=== PATIENT | female | born 2000 | race Caucasian/White ===

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

== ENCOUNTER 2022-09-28 18:46 | Emergency (ER) | payer MEDICAID, SELFPAY ==
[2022-09-28 18:50] VITALS: BP 135/69; PULSE 118; RESP 18; TEMP 36.8; O2SAT 97; BMI 37.7
[2022-09-28 19:20] LABS: Basophils # 0.3 K/mm3 (0-0.2); Basophils % 2.4 % (0.1-2.0); Eosinophils # 0.3 K/mm3 (0.0-0.4); Eosinophils % 2.6 % (0.1-12.0); Hematocrit 49.5 % (37.0-47.0); Hemoglobin 16.2 g/dL (12.2-16.2); Lymphocytes # 1.5 K/mm3 (0.7-4.5); Lymphocytes % 12.7 % (10-50); Mean Corpuscular HGB Conc 32.7 g/dL (31.8-35.4); Mean Corpuscular Hemoglobin 28.7 pg (27.0-31.2); Mean Corpuscular Volume 87.8 fl (81-99); Mean Platelet Volume 8.5 fl (7.4-10.4); Monocytes # 0.8 K/mm3 (0.1-1.0); Monocytes % 6.8 % (1.7-9.3); Neutrophils # 8.8 K/mm3 (1.8-7.8); Neutrophils % 75.6 % (37.0-80.0); Platelet Count 399 K/mm3 (142-424); Red Blood Count 5.64 M/mm3 (4.20-5.40); Red Cell Distribution Width 13.1 % (11.5-17.5); White Blood Count 11.7 K/mm3 (4.5-13.0)
[2022-09-28 19:27] LABS: Chloride 104 mmol/L (98-107); Potassium 3.8 mmoL/L (3.5-5.1); Sodium 139 mmol/L (136-145)
[2022-09-28 19:29] LABS: Blood Urea Nitrogen 8 mg/dl (7-17); Creatinine Clearance Estimated 156 mL/min (50-200); Estimated Glomerular Filt Rate 92 ml/min (>60); GFR (African American) 112 ML/MIN (>60); Lactic Acid 1.6 mmol/L (0.7-2.1)
[2022-09-28 19:30] LABS: Alanine Aminotransferase 62 U/L (12-78); Albumin Level 4.1 g/dl (3.5-5.0); Albumin/Globulin Ratio 1.5 (1.1-1.8); Alkaline Phosphatase 122 U/L (38-126); Anion Gap 13.8 mEq/L (5-15); Aspartate Amino Transferase 37 U/L (14-36); Calcium 8.9 mg/dl (8.4-10.2); Carbon Dioxide 25 mmol/L (22.0-30.0); Globulin 2.8 g/dL (1.3-3.2); Glucose 135 mg/dl (74-100); Total Protein,Serum 6.9 g/dl (6.3-8.2)
[2022-09-28 19:33] LABS: Bilirubin,Total 0.1 mg/dl (0.2-1.3)
--- NOTE | 2022-09-28 19:38 | HMH.EDGENADL ---
Discharge Plan Disposition Patient Disposition: Home, Self-Care Chief Complaint: Abdominal Pain Prescriptions Prescriptions: No Action cefdinir 300 MG capsule 300 mg PO BID Qty: 14 0RF Referrals Follow up/Referrals: Vazquez Cullen [Primary Care Provider] - See instructions Clinical Impressions Clinical Impression: Abdominal pain Instructions Patient Instructions: DI for Acute Abdominal Pain Discharge ED Provider: Dany Guzman General Adult HPI General Chief complaint: Abdominal Pain Stated complaint: n/v Time Seen by Provider: 09/28/22 19:00 Mode of Arrival: EMS Source of Information: Patient Limitations: No Limitations Description of Symptoms (Recalled from ER Triage Doc. by RN): PT BROUGHT IN VIA EMS FOR ABDOMINAL PAIN X 2 DAYS. STATES IT COULD BE MY PANCREATITIS History of Present Illness HPI narrative: This is a 21-year-old female with history of obesity numerous episodes of pancreatitis presenting with nausea and vomiting as well as abdominal pain x3 days. Patient states that 3 days ago she began vomiting while she was sitting in her room. No inciting incident. She has not been vomiting in the absence of oral intake, but every time she attempts taking oral intake she vomits multiple times. Nonbloody, nonbilious. She has also had associated diarrhea that is chronic, but mildly worsened. Diarrhea is also nonbloody. She is complaining of epigastric pain that is moderate in intensity, radiates through to her back and is worse when she is retching. Denies fevers, chills, chest pain, shortness of breath, cough, sick contacts, or any other concerning symptoms. Related Data Previous Rx's Medication Instructions Recorded cefdinir 300 mg capsule 300 mg PO BID #14 caps 09/23/19 Allergies Allergy/AdvReac Type Severity Reaction Status Date / Time No Known Allergies Allergy Verified 09/28/22 19:32 [facility] Disclaimer: The information contained in this section may have been updated after the patient was seen, as this information can be updated by other users. Surgical History (Updated 09/28/22 @ 19:07 by Caitlyn Belcher RN) Hx of cholecystectomy Social History (Updated 09/28/22 @ 19:07 by Caitlyn Belcher RN) Smoking Status: Never smoker alcohol intake: never current occupational status: student Travel in the last 8 weeks: None housing: house ROS Obtained: Yes All systems reviewed & no additional complaints except as documented Physical Exam General General appearance: alert and in no apparent distress Head Head exam: atraumatic, normocephalic and normal inspection Eye Eye exam: Present normal appearance, PERRL and EOMI ENT ENT exam: Present normal exam, normal oropharynx, mucous membranes moist, TM's normal bilaterally and normal external ear exam Neck Neck exam: Present normal inspection, full ROM and trachea midline; Absent meningismus or lymphadenopathy Chest Chest inspection: Present normal inspection and symmetric chest wall rise; Absent tenderness Respiratory Respiratory exam: Present normal lung sounds bilaterally; Absent respiratory distress Cardiovascular Cardiovascular exam: Present regular rate and normal rhythm; Absent JVD Abdominal Exam Abdominal exam: Present soft, tenderness and normal bowel sounds; Absent distention, guarding, rebound, rigidity, hypoactive bowel sounds, Sky's sign or Rovsing's sign Abdominal tenderness: Present epigastrium Extremities Exam Extremities exam: Present normal inspection, full ROM and normal capillary refill; Absent calf tenderness Back Exam Back exam: Present normal inspection; Absent tenderness Neurological Exam Neurological exam: Present alert and oriented X3 Psychiatric Psychiatric exam: Present normal affect and normal mood Skin Skin exam: Present warm, dry, intact and normal color Lymphatic Lymphatic Findings: no adenopathy Medical Decision Making Medical Records Medical records reviewed: Yes I reviewed the
[2022-09-28 19:44] LABS: Lipase 55 U/L (23-300); Triglycerides 131 mg/dl (30-150)
--- NOTE | 2022-09-28 19:53 | CT_ITS ---
PROCEDURE INFORMATION: Exam: CT Abdomen And Pelvis With Contrast Exam date and time: 09/28/2022 8:51 PM Age: 21 years old Clinical indication: Abdominal pain; Generalized; Additional info: History of pancreatitis, epigastric pain TECHNIQUE: Imaging protocol: Computed tomography of the abdomen and pelvis with contrast. Radiation optimization: All CT scans at this facility use at least one of these dose optimization techniques: automated exposure control; mA and/or kV adjustment per patient size (includes targeted exams where dose is matched to clinical indication); or iterative reconstruction. Contrast material: ISOVUE; Contrast volume: 75 ml; Contrast route: IV; COMPARISON: CT ABDOMEN PELVIS W CON 03/14/2021 8:28 PM FINDINGS: Liver: Normal. No mass. Gallbladder and bile ducts: Status post cholecystectomy. Pancreas: Normal enhancement. No ductal dilation. Spleen: No splenomegaly. Adrenal glands: No mass. Kidneys and ureters: No hydronephrosis. Stomach and bowel: No obstruction. No mucosal thickening. Appendix: No evidence of appendicitis. Intraperitoneal space: No significant fluid collection. No free air. Vasculature: No abdominal aortic aneurysm. Lymph nodes: Scattered borderline mesenteric lymph nodes measuring up to 9 mm. Urinary bladder: No acute abnormality. Reproductive: No acute abnormality. Bones/joints: No acute fracture. Soft tissues: No soft tissue swelling. IMPRESSION: Scattered borderline mesenteric lymph nodes which are nonspecific but potentially reactive. Close clinical follow-up is recommended to ensure resolution.
[2022-09-28 20:02] LABS: HCG,Quantitative < 2 mIU/ml (0-5.42)
[2022-09-28 20:11] LABS: Microscopic, Urine URINE MICROSCOPIC (MICROSCOPIC)
[2022-09-28 20:20] LABS: Appearance,Urine CLEAR (Clear); Blood, Urine TRACE-L (Negative); Color,Urine YELLOW (Yellow); Glucose,Urine (UA) Negative (Negative); Ketones,Urine TRACE (Negative); Leukocyte Esterase,Urine Negative (Negative); Nitrate,Urine Negative (Negative); PH,Urine 5.5 (5.0-8.5); Protein,Urine TRACE (Negative); Specific Gravity, Urine 1.025 (1.005-1.030)
[2022-09-28 20:26] LABS: Urine Pregnancy, HCG Qual. Negative (Negative)
[2022-09-28 20:34] LABS: Bilirubin,Urine Negative (Negative)
[2022-09-28 20:37] LABS: Bacteria,Urine 3+ /lpf; Squamous Epithelial Cell,Urine Occasional #/hpf (0-5)
[2022-09-28 21:13] VITALS: BP 135/69; PULSE 89; RESP 14; TEMP 37.1; O2SAT 98
== END 2022-09-28 22:29 | disposition home or self-care (01) ==
PROVIDERS: Emergency Provider Emergency Medicine; PCP Family Medicine
DX: K85.90 Acute pancreatitis without necrosis or infection, unspecified (principal); M54.9 Dorsalgia, unspecified; R11.2 Nausea with vomiting, unspecified; R19.7 Diarrhea, unspecified; E66.9 Obesity, unspecified
CPT/HCPCS: 74177; 80053; 81001; 81025; 83605; 83690; 84478; 84702; 85025; 87086; 96361; 96374; 96375; 99285; J2405; Q9967

== ENCOUNTER 2024-04-07 19:35 | Emergency (ER) | payer MEDICAID, SELFPAY ==
--- NOTE | 2024-04-07 19:40 | ED_ITS ---
<Statement entered by Bhavik Henning MD - 04/07/24 23:03> I was consulted by the GIANA, and we discussed the complexity of the problems being addressed. I approved the treatment and management plan for this patient's care in the emergency department, thus performing a substantive portion of the medical decision making. Bhavik Henning MD, QUINCY, FACEP Discharge Plan Disposition Patient Disposition: Home, Self-Care Condition: Good Prescriptions Prescriptions: No Action levetiracetam [Keppra] 500 mg Tablet 500 mg PO BID furosemide [Lasix] 20 mg Tablet 20 mg PO DAILYP PRN (Reason: Fluid) Referrals Follow up/Referrals: Vazquez Cullen [Primary Care Provider] - See instructions Activity Restrictions/Add. Instructions Additional Instructions/Restrictions: Follow-up with your PCP. You need referral and follow-up with GI to determine if this is actually pancreatitis. Return to ER for any worsening signs or symptoms as needed. Clinical Impressions Clinical Impression: Epigastric abdominal pain, Psychogenic nonepileptic seizure Instructions Patient Instructions: DI for Acute Abdominal Pain Discharge ED Provider: Bhavik Henning General Adult HPI General Chief complaint: Abdominal Pain Stated complaint: abd and back pain, vomiting Time Seen by Provider: 04/07/24 19:40 History of Present Illness HPI narrative: Patient presents for evaluation of self-described pancreatitis flare. Patient states that she has a known history of pancreatitis status post stenting in 2019 but just in case gastroenterology in [facility]. Patient does not currently follow with gastroenterology and her chronic pancreatitis is managed by her PCP with nonsteroidals. She is on no disease modifying medications. Patient states that she was seen at another hospital yesterday for similar complaints and told that she was drug-seeking and no evidence of pancreatitis. Reports I do not have the records although those were requested. Patient reports that she has epigastric abdominal pain radiating to her back. She denies cardiac chest pain shortness of breath fever chills hemoptysis hematochezia melena reports nausea and vomiting but no diarrhea. Denies hematuria or dysuria. Patient reports that she has been having seizures and has a diagnosis of epilepsy and now is been having breakthrough. She is reportedly on Keppra. Related Data Home Medications Medication Instructions Recorded Confirmed furosemide 20 mg tablet (Lasix) 20 mg PO DAILYP PRN Fluid 04/07/24 04/07/24 levetiracetam 500 mg tablet 500 mg PO BID 04/07/24 04/07/24 (Keppra) Allergies Allergy/AdvReac Type Severity Reaction Status Date / Time No Known Allergies Allergy Verified 09/28/22 19:32 [facility] Disclaimer: The information contained in this section may have been updated after the patient was seen, as this information can be updated by other users. Surgical History (Updated 09/28/22 @ 19:07 by Caitlyn Belcher RN) Hx of cholecystectomy Social History (Updated 09/28/22 @ 19:07 by Caitlyn Belcher RN) Smoking Status: Unknown if ever smoked alcohol intake: never current occupational status: student Travel in the last 8 weeks: None housing: house ROS Obtained: Yes Systems reviewed as appropriate & no additional complaints except as documented Physical Exam General General appearance: alert and in no apparent distress Respiratory Respiratory exam: Present normal lung sounds bilaterally Cardiovascular Cardiovascular exam: Present regular rate and normal rhythm Abdominal Exam Abdominal exam: Present soft, tenderness (Patient is tender to palpation in the epigastrium without rebound or guarding or rigidity. Bowel sounds normal active.), rigidity and normal bowel sounds; Absent guarding or rebound Neurological Exam Neurological exam: Present alert and oriented X3 Medical Decision Making Medical Records Medical records reviewed: Yes I reviewed the patient's medical records. Juan Diego Inquiry Pt receiving controlled substance: No Vital Signs: 04/07/24 20:00 04/07/24 20:01 04/07/24 20:30 Temperature 98.3 F Temperature Source Oral Pulse Rate 113 H 75 Pulse Rate [Right Brachial] 96 H Respiratory Rate 19 Blood Pressure 145/98 H 136/84 Blood Pressure [Right Arm] 131/82 Blood Pressure Mean 113 101 Blood Pressure Mean [Right Arm] 98 Blood Pressure Source [Right Arm] Automatic Cuff Blood Pressure Position [Right Arm] Sitting 02 Sat by Pulse Oximetry 100 99 98 Oxygen Delivery Method Room Air 04/07/24 21:00 04/07/24 21:30 Temperature Temperature Source Pulse Rate 75 69 Pulse Rate [Right Brachial] Respiratory Rate Blood Pressure 125/71 134/73 Blood Pressure [Right Arm] Blood Pressure Mean 89 89 Blood Pressure Mean [Right Arm] Blood Pressure Source [Right Arm] Blood Pressure Position [Right Arm] 02 Sat by Pulse Oximetry 99 97 Oxygen Delivery Method Lab Data Lab results reviewed: Yes I reviewed the patient's lab results. Lab Results 04/07/24 19:45: Urine Color Yellow, Urine Appearance Clear, Urine pH 6.0, Ur Specific [place] >= 1.030, Urine Protein Negative, Urine Glucose (UA) Negative, Urine Ketones Negative, Urine Blood 3+, Urine Nitrate Negative, Urine Bilirubin Negative, Urine Urobilinogen 1.0, Ur Leukocyte Esterase Negative, Urine RBC 5- 10, Urine WBC None, Ur Squamous Epith Cells Occasional, Urine Bacteria Trace 04/07/24 20:39: WBC 10.5, RBC 4.71, Hgb 15.5, Hct 42.4, MCV 90.1, MCH 32.8 H, M CHC 36.4 H, RDW 14.2, Plt Count 310, MPV 9.0, Neut % (Auto) 60.3, Lymph % (Auto) 30.7, [place] % (Auto) 6.0, Eos % (Auto) 1.6, Baso % (Auto) 1.2, Neut # (Auto) 6.3, Lymph # (Auto) 3.2, [place] # (Auto) 0.6, Eos # (Auto) 0.2, Baso # (Auto) 0.1, Sodium 141, Potassium 4.6, Chloride 107, Carbon Dioxide 23, Anion Gap 15.6 H, BUN 11, Creatinine 0.90, Estimated Creat Clear 131, Estimated GFR 79, Est GFR ( Amer) 96, Glucose 96, Hemoglobin A1c 5.8, Calcium 9.9, Magnesium 1.9, Total Bilirubin 0.4, AST 35, ALT 38, Alkaline Phosphatase 70, Total Protein 7.5, Albumin 4.4, Globulin 3.1, Albumin/Globulin Ratio 1.4, Lipase 122, Serum HCG, Qual Negative 04/07/24 20:39 04/07/24 20:39 Orders (Tests/Meds): ED MEDICATIONS Generic Name Dose Route Start Last Admin Trade Name Freq PRN Reason Stop Dose Admin Sodium Chloride 10 ml 04/07/24 21:44 04/07/24 21:45 Sodium Chloride 0.9% 10ml Syr (Rad Only) IV 05/07/24 21:43 10 ml NEEDED PRN Administration Maintain IV Site Discontinued Medications Generic Name Dose Route Start Last Admin Trade Name Freq PRN Reason Stop Dose Admin Acetaminophen 1,000 mg 04/07/24 20:00 04/07/24 20:39 Acetaminophen 1,000mg/100ml Vial IV 04/07/24 20:01 1,000 mg ONCE ONE Administration Dexamethasone Sodium Phosphate 10 mg 04/07/24 20:00 04/07/24 20:38 Dexamethasone 4mg/Ml 5ml Mdv IV 04/07/24 20:01 10 mg ONCE ONE Administration Lactated Ringer's 1,000 mls @ 999 mls/hr 04/07/24 20:00 04/07/24 20:39 Lactated Ringer's 1000 Ml Bag IV 04/07/24 21:00 999 mls/hr .Q1H1M ONE Administration Iopamidol 75 ml 04/07/24 21:44 04/07/24 21:45 Iopamidol-370 (76%);100ml Bottle IV 04/07/24 21:45 75 ml ONCE ONE Administration Ketorolac Tromethamine 15 mg 04/07/24 20:00 04/07/24 20:38 Ketorolac 30mg/Ml Vial IV 04/07/24 20:01 15 mg ONCE ONE Administration Metoclopramide HCl 10 mg 04/07/24 21:49 04/07/24 22:30 Metoclopramide Hcl 10mg/2ml Vial IVP 04/07/24 21:50 10 mg ONCE ONE Administration Ondansetron HCl 4 mg 04/07/24 20:00 04/07/24 20:38 Ondansetron 4mg/2ml Vial IV 04/07/24 20:01 4 mg ONCE ONE Administration Ondansetron HCl 4 mg 04/07/24 20:30 04/07/24 20:55 Ondansetron 4mg/2ml Vial IV 04/07/24 20:31 Not Given ONCE ONE Promethazine HCl 12.5 mg 04/07/24 21:54 04/07/24 22:29 Promethazine Hcl 25mg/Ml 1ml Vial IV 04/07/24 21:55 12.5 mg ONCE ONE Administration Sodium Chloride 25 ml 04/07/24 21:54 04/07/24 22:30 Sodium Chloride 0.9% 25ml Bag IV 04/07/24 21:55 25 ml ONCE ONE Administration ORDERS Category Date Time Status CT abdomen pelvis w con Stat Cat Scan 04/07/24 20:00 Taken CBC w/Auto Diff [Complete Blood Count Auto Diff] Stat Lab 04/07/24 20:39 Completed CMP [Comprehensive Metabolic Panel] Stat Lab 04/07/24 20:39 Completed HCG Qualitative, Serum Stat Lab 04/07/24 20:39 Completed Hemoglobin A1C Stat Lab 04/07/24 20:39 Completed Lactic Acid Stat Lab 04/07/24 20:01 Ordered Lipase Stat Lab 04/07/24 20:39 Completed Magnesium Stat Lab 04/07/24 20:39 Completed UA [Urinalysis and Microscopic] Stat Lab 04/07/24 19:45 Completed Medical Decision Narrative: In summary patient is a 23-year-old female who presents to the emergency department for evaluation of epigastric abdominal pain. Patient is hemodynamically stable upon arrival, afebrile. Physical exam is remarkable for epigastric abdominal pain without rebound or guarding or rigidity. Bowel sounds normal active. Patient also has CVA tenderness on the left to percussion. Differential diagnosis includes GERD, ulcer disease, pancreatitis, cholecystitis, cholelithiasis, bowel obstruction, constipation, kidney stone, pyelonephritis etc. Initial workup will be conducted with hematologic labs, CT scan abdomen pelvis, urinalysis.. Initial interventions include crystalloid bolus Toradol Decadron acetaminophen. Initial workup reviewed by me shows that her hematologic labs are nonactionable and my informal interpretation of her CT scan shows no acute processes prior to radiology read. I had interactive discussion as the patient is wishing to be discharged and I informed her that while I did not see any acute processes the official read was not back. I did recommend that the patient wait however patient elected to go ahead and be discharged with notification of any abnormal findings should they be found and she will return to the hospital.. Upon repeat evaluation patient reports significant anxiety but no abdominal pain. Given this patient directed discharge, she is appropriate for discharge with follow-up with her PCP. Of note patient did have what her mom describes as a seizure while in the ER and was witnessed both by myself and Dr. Henning however this was a nonepileptic event. She was able to be stimulated with noxious stimuli to break this seizure and was postictal. Review of her records at shows that she was diagnosed with pseudoseizures and specifically that had negative epileptic workup and that no antiepileptic medication was indicated nor recommended by neurology. Critical Care Critical Care Time Critical Care Time: No
[2024-04-07 20:00] VITALS: BP 145/98; PULSE 113; O2SAT 100
--- NOTE | 2024-04-07 20:00 | CT_ITS ---
PROCEDURE INFORMATION: Exam: CT Abdomen And Pelvis With Contrast Exam date and time: 04/07/2024 9:40 PM Age: 23 years old Clinical indication: Abdominal pain; Additional info: Acute abdominal pain, history of pancreatitis TECHNIQUE: Imaging protocol: Computed tomography of the abdomen and pelvis with contrast. Radiation optimization: All CT scans at this facility use at least one of these dose optimization techniques: automated exposure control; mA and/or kV adjustment per patient size (includes targeted exams where dose is matched to clinical indication); or iterative reconstruction. Contrast material: ISOVUE; Contrast volume: 75 ml; Contrast route: IV; COMPARISON: CT ABDOMEN PELVIS W CON 09/28/2022 8:51 PM FINDINGS: Lungs: No acute finding. Liver: Normal. No mass. Gallbladder and biliary ducts: The gallbladder is absent. There is no biliary ductal dilation. Pancreas: Normal. No ductal dilation. Spleen: Normal. No splenomegaly. Adrenal glands: Normal. No mass. Kidneys and ureters: 2 mm right intrarenal calculus. Previously noted left intrarenal calculus is not evident. The kidneys demonstrate symmetric function. No hydronephrosis. The ureters are normal. Stomach and bowel: Unremarkable. No obstruction. No mucosal thickening. Appendix: No evidence of appendicitis. Intraperitoneal space: Unremarkable. No free air. No significant fluid collection. Vasculature: Unremarkable. No abdominal aortic aneurysm. Lymph nodes: Unremarkable. No enlarged lymph nodes. Previously noted borderline mesenteric lymph nodes are less prominent on today's study. Urinary bladder: Unremarkable as visualized. Reproductive: Unremarkable as visualized. Bones/joints: Moderate degenerative changes of the lower thoracic and upper lumbar spine. No acute fracture. Soft tissues: Unremarkable. IMPRESSION: There is no acute process evident within the abdomen or pelvis.
[2024-04-07 20:01] VITALS: BP 131/82; PULSE 96; RESP 19; TEMP 36.8; O2SAT 99; BMI 33.8
[2024-04-07 20:09] LABS: Microscopic, Urine URINE MICROSCOPIC (MICROSCOPIC)
--- NOTE | 2024-04-07 20:19 | PC.NURSE ---
medical request faxed to [facility]
--- NOTE | 2024-04-07 20:21 | ECG_ITS ---
APPROVED REPORT Exam: Resting ECG HR:71 bpm ECG Measurements Heart Rate 71 AXES IA 161 P 36 QRSd 95 QRS 55 QT 372 T 61 QTc 394 Conclusion SINUS RHYTHM WITH MARKED RHYTHM IRREGULARITY, POSSIBLE NON-CONDUCTED PAC, SA BLOCK, AV BLOCK, OR SINUS PAUSE CRITICAL TEST RESULT UNCONFIRMED REPORT Electronically signed by : Tayo Henning, 04/07/2024 23:10:01
[2024-04-07 20:22] LABS: Appearance,Urine CLEAR (Clear); Bilirubin,Urine Negative (Negative); Blood, Urine 3+ (Negative); Color,Urine YELLOW (Yellow); Glucose,Urine (UA) Negative (Negative); Ketones,Urine Negative (Negative); Leukocyte Esterase,Urine Negative (Negative); Nitrate,Urine Negative (Negative); Protein,Urine Negative (Negative); Specific Gravity, Urine >= 1.030 (1.005-1.030)
[2024-04-07 20:30] VITALS: BP 136/84; PULSE 75; O2SAT 98
[2024-04-07] MEDS: KETOROLAC 30MG/ML VIAL 15 MG IV (20:38)
[2024-04-07] MEDS: ONDANSETRON 4MG/2ML VIAL 4 MG IV (20:38)
[2024-04-07] MEDS: DEXAMETHASONE 4MG/ML 5ML MDV 10 MG IV (20:38)
[2024-04-07] MEDS: LACTATED RINGERS 1000ML 1,000 ML 999 ML IV (20:39)
[2024-04-07] MEDS: ACETAMINOPHEN 1,000MG/100ML VIAL 1000 MG IV (20:39)
[2024-04-07 20:50] LABS: Bacteria,Urine Trace /lpf; Squamous Epithelial Cell,Urine Occasional #/hpf (0-5)
[2024-04-07 20:55] LABS: Basophils # 0.1 K/mm3 (0-0.2); Basophils % 1.2 % (0.1-2.0); Eosinophils # 0.2 K/mm3 (0.0-0.4); Eosinophils % 1.6 % (0.1-12.0); Hematocrit 42.4 % (37.0-47.0); Hemoglobin 15.5 g/dL (12.2-16.2); Lymphocytes # 3.2 K/mm3 (0.7-4.5); Lymphocytes % 30.7 % (10-50); Mean Corpuscular HGB Conc 36.4 g/dL (31.8-35.4); Mean Corpuscular Hemoglobin 32.8 pg (27.0-31.2); Mean Corpuscular Volume 90.1 fl (81-99); Monocytes # 0.6 K/mm3 (0.1-1.0); Neutrophils # 6.3 K/mm3 (1.8-7.8); Neutrophils % 60.3 % (37.0-80.0); Platelet Count 310 K/mm3 (142-424); Red Blood Count 4.71 M/mm3 (4.20-5.40); Red Cell Distribution Width 14.2 % (11.5-17.5); White Blood Count 10.5 K/mm3 (4.8-10.8)
[2024-04-07 21:00] VITALS: BP 125/71; PULSE 75; O2SAT 99
[2024-04-07 21:10] LABS: Lipase 122 U/L (23-300)
[2024-04-07 21:11] LABS: Magnesium 1.9 mg/dl (1.6-2.3)
[2024-04-07 21:14] LABS: Hemoglobin A1C 5.8 % (4.0-6.0)
[2024-04-07 21:18] LABS: Chloride 107 mmol/L (98-107); Potassium 4.6 mmoL/L (3.5-5.1); Sodium 141 mmol/L (136-145)
[2024-04-07 21:21] LABS: Alanine Aminotransferase 38 U/L (12-78); Albumin Level 4.4 g/dl (3.5-5.0); Albumin/Globulin Ratio 1.4 (1.1-1.8); Alkaline Phosphatase 70 U/L (38-126); Anion Gap 15.6 mEq/L (5-15); Aspartate Amino Transferase 35 U/L (14-36); Bilirubin,Total 0.4 mg/dl (0.2-1.3); Blood Urea Nitrogen 11 mg/dl (7-17); Carbon Dioxide 23 mmol/L (22.0-30.0); Creatinine Clearance Estimated 131 mL/min (50-200); Estimated Glomerular Filt Rate 79 ml/min (>60); GFR (African American) 96 ML/MIN (>60); Globulin 3.1 g/dL (1.3-3.2); Total Protein,Serum 7.5 g/dl (6.3-8.2)
[2024-04-07 21:22] LABS: Calcium 9.9 mg/dl (8.4-10.2); Glucose 96 mg/dl (74-100)
[2024-04-07 21:30] VITALS: BP 134/73; PULSE 69; O2SAT 97
[2024-04-07 21:31] LABS: HCG Qualitative, Serum Negative (Negative)
[2024-04-07] MEDS: SODIUM CHLORIDE 0.9% 10ML SYR (RAD ONLY) 10 ML IV (21:45)
[2024-04-07] MEDS: IOPAMIDOL-370 (76%);100ML BOTTLE 75 ML IV (21:45)
[2024-04-07] MEDS: PROMETHAZINE HCL 25MG/ML 1ML VIAL 12.5 MG IV (22:29)
[2024-04-07] MEDS: SODIUM CHLORIDE 0.9% 25ML BAG 25 ML IV (22:30)
[2024-04-07] MEDS: METOCLOPRAMIDE HCL 10MG/2ML VIAL 10 MG IVP (22:30)
[2024-04-07 22:46] VITALS: BP 124/64; PULSE 67; RESP 14; TEMP 36.5; O2SAT 95
== END 2024-04-07 22:47 | disposition home or self-care (01) ==
PROVIDERS: Physician Assistant; Emergency Provider Student in an Organized Health Care Education/Training Program; PCP Family Medicine
DX: R10.13 Epigastric pain (principal); F44.5 Conversion disorder with seizures or convulsions
CPT/HCPCS: 74177; 80053; 81001; 83036; 83690; 83735; 84703; 85025; 93005; 96361; 96374; 96375; 96376; 99285; J0131; J1885; J2405; J2550; J2765; J7120; Q9967

== ENCOUNTER 2025-10-03 21:18 | Emergency (ER) | payer MEDICAID, SELFPAY ==
--- NOTE | 2025-10-03 21:49 | CT_ITS ---
PROCEDURE INFORMATION: Exam: CT Abdomen And Pelvis With Contrast Exam date and time: 10/03/2025 11:01 PM Age: 24 years old Clinical indication: Abdominal pain; Additional info: Right flank pain TECHNIQUE: Imaging protocol: Computed tomography of the abdomen and pelvis with contrast. Radiation optimization: All CT scans at this facility use at least one of these dose optimization techniques: automated exposure control; mA and/or kV adjustment per patient size (includes targeted exams where dose is matched to clinical indication); or iterative reconstruction. Contrast material: ISOVUE; Contrast volume: 75 ml; Contrast route: IV; COMPARISON: CT ABDOMEN PELVIS W CON 04/07/2024 9:40 PM FINDINGS: Lungs: Visualized lung bases demonstrate no acute abnormality. Liver: No focal liver lesion is identified. Gallbladder and biliary ducts: Post cholecystectomy. No significant bile duct dilation. Pancreas: No peripancreatic inflammatory change or significant pancreatic duct dilation. Spleen: Splenic size is within normal limits. No focal splenic lesion is identified. Adrenal glands: The adrenal glands are unremarkable. Kidneys and ureters: 2 mm nonobstructive right renal stone is again noted. No left renal stones. No stones in the ureters. The kidneys enhance symmetrically. No hydronephrosis. No renal perfusion defects or perinephric inflammation. Stomach and bowel: The stomach is unremarkable. No small bowel obstruction or acute inflammatory change. The colon is not obstructed. No evidence of diverticulosis or acute inflammatory change. Appendix: The appendix is identified. No evidence of acute appendicitis. Intraperitoneal space: Small pelvic free fluid. No free air. Vasculature: The abdominal aorta is nonaneurysmal. Lymph nodes: Unremarkable. No enlarged lymph nodes. Urinary bladder: No stones in the bladder. No wall thickening. No gas in the lumen or wall. Reproductive: Roughly 20 x 10 mm involuting left ovarian corpus luteum cyst. Right ovary is unremarkable. Uterus is unremarkable. Bones/joints: No acute fracture is identified. Mild thoracolumbar scoliosis is again noted. Soft tissues: Unremarkable. IMPRESSION: 1. No acute abnormality is identified. 2. 2 mm nonobstructive right renal stone is again noted. No left renal stones. No stones in the ureters or bladder. No hydronephrosis. No evidence of pyelonephritis.
--- NOTE | 2025-10-03 21:49 | XR_ITS ---
PROCEDURE INFORMATION: Exam: XR Chest Exam date and time: 10/03/2025 10:51 PM Age: 24 years old Clinical indication: Shortness of breath TECHNIQUE: Imaging protocol: Radiologic exam of the chest. Views: 1 view. COMPARISON: CR XR CHEST PORTABLE 10/03/2025 10:51 PM FINDINGS: Lungs: No consolidation or pulmonary edema. Pleural spaces: No pleural effusion. No pneumothorax. Heart/Mediastinum: The cardiomediastinal silhouette is not enlarged. Bones/joints: Visualized bones demonstrate no acute abnormality. IMPRESSION: No acute abnormality is identified.
[2025-10-03 21:54] LABS: Microscopic, Urine URINE MICROSCOPIC (MICROSCOPIC)
[2025-10-03 21:56] LABS: Hematocrit 44.4 % (37.0-47.0); Hemoglobin 14.2 g/dL (12.2-16.2); Immature Granulocytes % 0.2 %; Mean Corpuscular HGB Conc 32.0 g/dL (31.8-35.4); Mean Corpuscular Hemoglobin 28.2 pg (27.0-31.2); Mean Corpuscular Volume 88.1 fl (81-99); Nucleated Red Blood Cells % 0 %; Platelet Count 357 K/mm3 (142-424); Red Blood Count 5.04 M/mm3 (4.20-5.40); Red Cell Distribution Width-SD 43.7 fL; White Blood Count 8.5 K/mm3 (4.8-10.8)
--- NOTE | 2025-10-03 22:02 | HMH.EDGENADL ---
Discharge Plan Disposition Patient Disposition: Home, Self-Care Condition: Good Prescriptions Prescriptions: New ondansetron 4 mg tablet,disintegrating 4 mg PO Q6H PRN (Reason: nausea and vomiting) Qty: 14 0RF No Action levetiracetam [Keppra] 500 mg Tablet 500 mg PO BID furosemide [Lasix] 20 mg Tablet 20 mg PO DAILYP PRN (Reason: Fluid) Referrals Follow up/Referrals: Vazquez Cullen [Primary Care Provider, Medical] - See instructions Activity Restrictions/Add. Instructions Additional Instructions/Restrictions: Follow-up with your primary care doctor as needed. I am prescribing Zofran to help with nausea and vomiting. Take this as prescribed. If you develop any new or worsening symptoms, or if you become concerned for your help for any reason, return to the emergency department for evaluation Clinical Impressions Clinical Impression: Nausea & vomiting Instructions Patient Instructions: DI for Acute Abdominal Pain Print Language Print Language: Armenian Discharge ED Provider: Elijah Jimenez General Adult HPI General Chief complaint: Abdominal Pain Stated complaint: pancreas pain, pain across abdomen Time Seen by Provider: 10/03/25 21:35 History of Present Illness HPI narrative: Kristy Jason is a 24-year-old female with a past medical history of pancreatitis status post dissolvable stents who presents to the emergency department for complaints of epigastric pain, nausea and vomiting. Patient states that approximately 2 hours ago, she developed pain in her left upper quadrant that radiates to her epigastric region right upper quadrant with associated nausea and nonbilious nonbloody vomiting. She denies any diarrhea or fever. She states it feels like previous episodes of pancreatitis. Related Data Home Medications ?Medication ?Instructions ?Recorded ?Confirmed furosemide 20 mg tablet (Lasix) 20 mg PO DAILYP PRN Fluid 04/07/24 04/07/24 levetiracetam 500 mg tablet 500 mg PO BID 04/07/24 04/07/24 (Keppra) Previous Rx's ?Medication ?Instructions ?Recorded ondansetron 4 mg disintegrating 4 mg PO Q6H PRN nausea and 10/04/25 tablet vomiting #14 tabs Allergies Allergy/AdvReac Type Severity Reaction Status Date / Time No Known Allergies Allergy Verified 09/28/22 19:32 PFSH [facility] Disclaimer: The information contained in this section may have been updated after the patient was seen, as this information can be updated by other users. Surgical History (Updated 09/28/22 @ 19:07 by Caitlyn Belcher RN) Hx of cholecystectomy Social History (Updated 09/28/22 @ 19:07 by Caitlyn Belcher RN) Smoking Status: Never smoker alcohol intake: never current occupational status: student Travel in the last 8 weeks?: None housing: house Have you lived/traveled outside US in past 30 days?: No Contact w/someone who lives/traveled outside US past 30 days?: No Exposure to someone with infectious disease in past 14 days?: No Do you have a fever (greater than 100.4 F or 38 C)?: No Have you tested positive for COVID-19?: No Exposed to someone with COVID-19 in past 14 days?: No Do you have a sore throat?: No Do you have a cough?: No Do you have any weakness?: No Do you have any diarrhea?: No Are you experiencing any unusual bleeding?: No Do you have any muscle aches/pain?: No Do you have any abdominal pain?: No Are you experiencing loss of taste or smell?: No Other Medical History Have you received the Flu Vaccine for this season: Yes Have you received the Pneumonia Vaccine: No ROS Obtained: Yes Systems reviewed as appropriate & no additional complaints except as documented Physical Exam General General appearance: alert and in no apparent distress Head Head exam: atraumatic Eye Eye exam: Present normal appearance ENT ENT exam: Present normal external ear exam Neck Neck exam: Present full ROM Chest Chest inspection: Present symmetric chest wall rise Respiratory Respiratory exam: Present normal lung sounds bilaterally; Absent respiratory distress, wheezes or stridor Cardiovascular Cardiovascular exam: Present regular rate and normal rhythm Abdominal Exam Abdominal exam: Present soft and tenderness (epigastric and LUQ); Absent distention, guarding or rigidity Extremities Exam Extremities exam: Present normal inspection Back Exam Back exam: Present normal inspection Neurological Exam Neurological exam: Present alert and oriented X3 Psychiatric Psychiatric exam: Present normal affect Skin Skin exam: Present warm and dry Medical Decision Making Medical Records Screening: Per USPSTF and CDC recommendations, given the prevalence of disease in our region, it is our hospital?s policy to screen for HIV and viral Hepatitis for all patients aged 18 and over and those with ongoing risk factors. Juan [place] Inquiry Pt receiving controlled substance: No Vital Signs: 10/03/25 23:46 10/03/25 23:50 10/04/25 00:32 Temperature 97.9 F 98.9 F 98.2 F Temperature Source Oral Oral Pulse Rate 74 72 Pulse Rate [Right] 75 Respiratory Rate 18 18 16 Blood Pressure 143/78 H 136/77 Blood Pressure [Right Arm] 143/78 H Blood Pressure Mean [Right Arm] 99 02 Sat by Pulse Oximetry 95 98 Oxygen Delivery Method Room Air Room Air Room Air Lab Data Lab Results 10/03/25 21:36: WBC 8.5, RBC 5.04, Hgb 14.2, Hct 44.4, MCV 88.1, MCH 28.2, MCHC 32.0, RDW 13.6, Plt Count 357, MPV 11.1 H, Neut % (Auto) 54.6, Lymph % (Auto) 33.4, Saline % (Auto) 9.8 H, Eos % (Auto) 1.4, Baso % (Auto) 0.6, Neut # (Auto) 4.7, Lymph # (Auto) 2.8, Saline # (Auto) 0.8, Eos # (Auto) 0.1, Baso # (Auto) 0.1, Sodium 137, Potassium 4.4, Chloride 103, Carbon Dioxide 26, Anion Gap 12.4, BUN 15, Creatinine 0.90, Estimated GFR 78, Est GFR ( Amer) 95, Glucose 100, Calcium 9.5, Magnesium 1.9, Total Bilirubin 0.4, AST 25, ALT 22, Alkaline Phosphatase 73, Troponin I < 0.01, Total Protein 7.8, Albumin 4.6, Globulin 3.2, Albumin/Globulin Ratio 1.4, Lipase 84, Urine Color Yellow, Urine Appearance Clear, Urine pH 6.0, Ur Specific Dawson 1.025, Urine Protein Negative, Urine Glucose (UA) Negative, Urine Ketones Negative, Urine Blood Negative, Urine Nitrate Negative, Urine Bilirubin Negative, Urine Urobilinogen 1.0, Ur Leukocyte Esterase Negative, Urine RBC None, Urine WBC None, Ur Squamous Epith Cells 10-20, Urine Bacteria 1+, Urine HCG, Qual Negative, HCV Ab COCO w/Rflx PCR Qn Negative, HIV Ag/Ab Combo Qual Negative 10/03/25 23:25: SARS-CoV-2 (PCR) Not detected, Influenza A Untype (PCR) Not detected, Influenza Type B (PCR) Not detected 10/03/25 21:36 10/03/25 21:36 Orders (Tests/Meds): ED MEDICATIONS Discontinued Medications Generic Name Dose Route Start Last Admin Trade Name Freq PRN Reason Stop Dose Admin Famotidine 20 mg 10/03/25 21:49 10/03/25 22:32 Famotidine 20mg/2ml Vial IV 10/03/25 21:50 20 mg ONCE ONE Administration Sodium Chloride 1,000 mls @ 999 mls/hr 10/03/25 21:49 10/03/25 22:33 Sod Chlor 0.9% 1000ml Bag IV 10/03/25 22:49 999 mls/hr .Q1H1M ONE Administration Iopamidol 75 ml 10/03/25 23:06 10/03/25 23:07 Iopamidol-370 (76%);100ml Bottle IV 10/03/25 23:07 75 ml ONCE ONE Administration Ketorolac Tromethamine 30 mg 10/03/25 21:50 10/03/25 22:32 Ketorolac 30mg/Ml Vial IV 10/03/25 21:51 30 mg ONCE ONE Administration Ondansetron HCl 4 mg 10/03/25 21:50 10/03/25 22:32 Ondansetron 4mg/2ml Vial IV 10/03/25 21:51 4 mg ONCE ONE Administration Sodium Chloride 8 ml 10/03/25 21:49 10/03/25 22:33 Sodium Chloride 0.9% 10ml Vial IV 11/02/25 21:48 8 ml NEEDED PRN Administration dilute pepcid Sodium Chloride 10 ml 10/03/25 23:06 10/03/25 23:07 Sodium Chloride 0.9% 10ml Syr (Rad Only) IV 11/02/25 23:05 10 ml NEEDED PRN Administration Maintain IV Site ORDERS Category Date Time Status CT abdomen pelvis w con Stat Cat Scan 10/03/25 21:49 Completed Chest XR -- portable [XR chest portable] Stat Exams 10/03/25 21:49 Completed CBC [Complete Blood Count Auto Diff] Stat Lab 10/03/25 21:36 Completed Comprehensive Metabolic Panel Stat Lab 10/03/25 21:36 Completed HIV Combo Stat Lab 10/03/25 21:36 Completed Hepatitis C Ab Qual. W/ RFX Stat Lab 10/03/25 21:36 Completed Lipase Stat Lab 10/03/25 21:36 Completed Magnesium Stat Lab 10/03/25 21:36 Completed Rapid PCR Covid and Flu A/B Stat Lab 10/03/25 23:25 Completed Trop I [Troponin I] Stat Lab 10/03/25 21:36 Completed Urinalysis and Microscopic Stat Lab 10/03/25 21:36 Completed Urine , HCG Qual. Stat Lab 10/03/25 21:36 Completed Medical Decision Narrative: Kristy Jason is a 24-year-old female with a past medical history of pancreatitis status post dissolvable stents who presents to the emergency department for complaints of epigastric pain, nausea and vomiting. Patient states that approximately 2 hours ago, she developed pain in her left upper quadrant that radiates to her epigastric region right upper quadrant with associated nausea and nonbilious nonbloody vomiting. She denies any diarrhea or fever. She states it feels like previous episodes of pancreatitis. On arrival, patient is hemodynamically stable, in no acute distress, breathing comfortably on room air with appropriate oxygen saturation. Physical exam, as stated above, reveals a nontoxic-appearing female. She has some tenderness in the epigastric and left upper quadrant without guarding or rigidity of the abdomen. Cardiopulmonary exam is unremarkable. The remainder of her physical exam is gross unremarkable as well. Differential diagnosis includes, but is not limited to: Acute pancreatitis, gastritis, peptic ulcer disease, GERD, ACS, among others. The most morbid conditions were considered and workup was based on these. Workup in the Emergency Department included: Hematologic labs, urine studies, CT abdomen/pelvis without contrast. EKG, chest x-ray. Patient was treated with 15 mg of IV Toradol and 4 mg of IV Zofran, 20 mg of IV Pepcid and 1 L normal saline. Patient's workup shows no leukocytosis, electrolytes and kidney function within normal limits. Liver enzymes and bilirubin within normal limits. Troponin less than 0.01. Lipase normal at 84. Urinalysis without evidence of infection. test negative. COVID and flu testing negative. Chest x-ray interpreted by me personally. No focal consolidation, no pneumothorax, no widened mediastinum, no enlargement of the cardiac silhouette. Unremarkable chest x-ray. See radiology report for details. EKG was interpreted by me personally. Normal sinus rhythm. No ST elevation or depression. CT abdomen pelvis was interpreted by me personally. There is no acute findings within the abdomen or pelvis. She has a small 2 mm nonobstructive right renal stone that has been seen on previous studies but no stones in the ureters or bladder. No hydronephrosis. No evidence of pyelonephritis. On reassessment, patient reports an improvement in her symptoms. I do feel that she is appropriate for discharge at this time. Will recommend NSAIDs, Tylenol and will prescribe Zofran for home. Return precautions were given. All questions were answered. She demonstrated understanding and was in agreement this plan. She was then discharged from the emergency department in stable condition. Critical Care Critical Care Time Critical Care Time: No
--- OUTSIDE RECORDS SUMMARY | 2025-10-03 22:05 | XMS_ITS | Encounter Summary ---
Author Organization [place] [address] Care Team Providers Care Straightedge Man Name Role Phone SubhashVazquez cortez Primary Care Provider [phone] Reason for Visit * Reason Onset Date Comments Medication Refill 08/10/2025 Encounter Details Date Type Department Care Team (Late st Contact Info) Description 08/09/2025 Refill [facility] [address] [place] [id number] Feliciano Johns, GUM MACHINE OPERATOR [address] [place] [address] Medication Refill Social History Tobacco Use Types Packs/Day Years Used Date Smoking Tobacco: Former Cigarettes Smokeless Tobacco: Never Alcohol Use Standard Drinks/Week Comments Never 0 (1 standard drink = 0.6 oz pur e alcohol) AUDIT-C Answer Date Recorded Q1: How often do you have a drink containing alc ohol? Never 12/07/2020 Average Number of Drinks Not on file 021 Frequency of Binge Drinking Not on file 11/2020 PHQ-2 Answer Date Recorded PHQ-2 Total Score 0 08/30/2021 Comments No Sex and Gender Information Value Date Recorded Sex Assigned at Not on file Legal Sex Female 8:42 PM EDT Gender Identity Not on file Sexual Orientation Not on file documented as of this encounter Functional Status * Is the person deaf or does he/she have serious difficulty hearing? Answer Date of Assessment Author No 11/22/2021 10:48 AM Darshana English RMA * Is the person blind or does he/she have serious difficulty seeing even when wearing glasses? Answer Date of Assessment Author No 11/22/2021 10:48 AM Darshana English RMA * Does this person have serious difficulty walking or climbing stairs? Answer Date of Assessment Author No 11/22/2021 10:48 AM Darshana English RMA * Does this person have difficulty dressing or bathing? Answer Date of Assessment Author No 11/22/2021 10:48 AM EST Darshana Woody RMA * Because of a physical, mental or emotional condition, does this person have difficulty doing errands alone such as visiting a doctor's office or shopping? Answer Date of Assessment Author No 11/22/2021 10:48 AM Darshana English RMA documented as of this encounter Mental Status * Because of a physical, mental or emotional condition, does this person have serious difficulty concentrating, remembering or making decisions? Answer Entry Date Author No 11/22/2021 10:48 AM Darshana English RMA documented in this encounter Miscellaneous Notes * Telephone Encounter - Kadie Vasquez CPhT - 08/11/2025 1:12 PM EST levETIRAcetam (KEPPRA) 500 mg Oral Tablet Patient has not had an office visit for any reason in >13 months (395 days). Lab tests needed, if any: NONE Defer to office. documented in this encounter Plan of Treatment Not on file documented as of this encounter Goals Goal Patient Goal Type Associated Problems Recent Progress Patient-Stated? Author Maintain a healthy diet, exercise regularly and maintain an ideal body weight General No Mariama Carlton RMA Stay Tobacco Free Lifestyle No Mariama Carlotn RMA documented as of this encounter Visit Diagnoses Diagnosis Seizure disorder (HCC) Unspecified epilepsy without mention of intractable epilepsy documented in this encounter Care Teams Straightedge Man Relationship Specialty Start Date End Date Vazquez Cullen DO [address] [place] [address] PCP - General Family Medicine 08/30/21 09/28/25 documented as of this encounter
--- OUTSIDE RECORDS SUMMARY | 2025-10-03 22:05 | XMS_ITS | Clinical Summary ---
Author Organization [facility] Address [address] [place] [address] Phone Care Team Providers Care Engineering Technician Name Role Phone Feliciano Johns APRN Primary Care Provider [phone] Allergies Active Allergy Reactions Criticality Noted Date Comments Morphine Other (See Comments) 12/07/2020 seizure Medications busPIRone (BUSPAR) 15 mg Oral TabletIndication s:Generalized anxiety disorder Take 1 Tablet by mouth 2 times daily as needed. 60 Tablet 2 2 Active Additional Information Patient not taking.Reason: Therapy Completed, Reported on 04/06/2024 fUROsemide (LASIX) 20 mg Oral TabletIndication s:Bilateral lower extremity edema TAKE 1 TABLET BY MOUTH EVERY DAY NEEDED 90 Tablet 3 3 Active VRAYLAR 3 mg Oral CapsuleIndicatio ns:Depression with anxiety TAKE 1 CAPSULE BY MOUTH EVERY DAY 30 Capsule 2 3 Active Additional Information Patient not taking.Reason: Therapy Completed, Reported on 04/06/2024 omeprazole (PRILOSEC) 20 mg Oral Capsule, Delayed Release(E.C.)Ind ications:Gastroe sophageal reflux disease without esophagitis Take 1 Capsule by mouth daily. 90 Capsule 2 4 Active Additional Information Patient not taking.Reason: Therapy Completed, Reported on 04/06/2024 levETIRAcetam (KEPPRA) 500 mg Oral TabletIndication s:Seizure disorder (HCC) Take 1 Tablet by mouth every 12 hours. 60 Tablet 2 5 Active Active Problems Problem Noted Date Diagnosed Date COVID-19 10/03/2021 Encounters Date Type Department Care Team Description 08/09/2025 Refill [facility] [address] [place] [address] Feliciano Johns APRN Medication Refill from Last 3 Months Immunizations Immunization Administration Dates Next Due DTaP, Unspecified Formulation 11/30/2006 ,02/11/2004,07/06/2003,05/04,03/03/2003 HPV 9 Valent 08/30/2021 HPV Quadrivalent 05/08/2014 Hep B/HiB 2003,03/03/2003 Hepatitis A, Ped/Adol, 2 Dose 08/30/2021, 014 HiB (PRP-OMP) 05/04/2003 IPV 11/30/2006, 3,05/04/2003,03/03 Influenza Vaccine Quadrivalent PF 08/30/2021 Influenza, Injectable, MDCK, PF, Quadrivalent 07/08/2019,07/22/2018 LAST MANUFACTURED 2011-Pneum ococcal Conjugate 7 Valent 2003,07/06/2003,05/04/2003,03/03 MMR 2003 MMRV 11/30/2006 Meningococcal Conjugate 08/30/2021,05/08/2014 Meningococcal MCV4, Unspecif ied Formulation 05/08/2014 Tdap 05/08/2014 Varicella 2003 Surgical History Surgery Date Site/Laterality Comments CHOLECYSTECTOMY PANCREAS SURGERY Medical History Medical History Date Comments Seizures (HCC) Pancreatitis Social History Tobacco Use Types Packs/Day Years Used Date Smoking Tobacco: Former Cigarettes Smokeless Tobacco: Never Tobacco Cessation:Counseling Given: Not Answered Alcohol Use Standard Drinks/Week Comments Never 0 [...] on file Sexual Orientation Not on file Last Filed Vital Signs Vital Sign Reading Time Taken Comments Blood Pressure 129/83 05/26/2025 4:09 PM EDT Pulse 96 05/26/2025 4:09 PM EDT Temperature 36.8 C (98.2 F) 05/26/2025 4:09 PM EDT Respiratory Rate 20 05/26/2025 4:09 PM EDT Oxygen Saturation 96% 05/26/2025 4:09 PM EDT Inhaled Oxygen Concentration - - Weight 89.8 kg (198 lb) 05/26/2025 4:09 PM EDT Height 154.9 cm (5' 1 ) 05/26/2025 4:09 PM EDT Body Mass Index 37.41 05/26/2025 4:09 PM EDT Plan of Treatment Health Maintenance Due Date Last Done Comments Hepatitis B Vaccine (3 of 3 - 3-dose series) 01/15/2004 2003, 03/03/2003 Annual Wellness Exam 2005 Meningococcal B Vaccine (1 of 2 - Standard) 2018 Cervical Cancer Screening 2023 Pap Smear 2023 DTaP/TDaP/Td (7 - Td or Tdap) 05/08/2024 05/08/2014, 11/30/2006, 02/11/2004, Additional history exists COVID-19 Vaccine ( - season) 2025 Influenza Vaccine (#1) 2025 3, 08/30/2021, 07/08/2019, Additional history exists Pneumococcal Vaccine 0-49 Aged Out 2003, 07/06/2003, 05/04/2003, Additional history exists No longer eligible based on patient's age to complete this topic HPV Completed 08/30/2021, 05/08/2014 Goals Goal Patient Goal Type Associated Problems Recent Progress Patient-Stated? Author Maintain a healthy diet, exercise regularly and maintain an ideal body weight General No Mariama Carlton RMA Stay Tobacco Free Lifestyle No Mariama Carlton RMA Insurance * Guarantor: Kristy Jason Account Type Relation to Patient Date of Phone Billing Address Personal/Family Self [address] [facility] Care Teams Engineering Technician Relationship Specialty Start Date End Date Feliciano Johns APRN [address] [place] [address] PCP - General Nurse Practitioner 09/29/25
--- OUTSIDE RECORDS SUMMARY | 2025-10-03 22:05 | XMS_ITS | Clinical Summary ---
Author Organization [facility] Address [address] [place] [address] Care Team Providers Care Wind Turbine Technician Name Role Phone Edilberto Harden MD Primary Care Provider [phone] Allergies Active Allergy Reactions Criticality Noted Date Comments Morphine Other (See Comments) 12/07/2020 seizure Medications ibuprofen (ADVIL,MOTRIN) 800 MG tabletIndications:A dolescent idiopathic scoliosis of thoracic region,Chronic midline low back pain without sciatica TAKE 1 TABLET BY MOUTH EVERY 6 HOURS NEEDED FOR MILD PAIN 60 tablet 0 Active omeprazole (priLOSEC) 20 MG capsuleIndications: Gastroesophageal reflux disease without esophagitis TAKE 1 CAPSULE BY MOUTH EVERY DAY 30 capsule 3 0 Active DULoxetine (Cymbalta) 60 MG capsuleIndications: ROSA (generalized anxiety disorder) Take 1 capsule by mouth Daily. 30 capsule 5 1 Active ondansetron ODT (ZOFRAN-ODT) 4 MG disintegrating tabletIndications:N ausea and vomiting, intractability of vomiting not specified, unspecified vomiting type 1 PO Q 6 hours PRN 20 tablet 1 1 Active Vraylar 1.5 MG capsule capsuleIndications: Severe mood disorder with psychotic features TAKE ONE CAPSULE BY MOUTH ONCE DAILY 30 capsule 1 1 Active Active Problems Problem Noted Date Diagnosed Date Chronic midline thoracic back pain 09/03/2017 Adolescent idiopathic scoliosis of thoracic janna on 08/03/2017 ROSA (generalized anxiety disorder) 06/18/2017 Intermittent explosive disorder in pediatric pat ient 06/18/2017 Pre-diabetes 05/14/2017 Deliberate self-cutting 02/07/2017 Resolved Problems Problem Noted Date Diagnosed Date Resolved Date Elevated blood pressure, situational 12/05/2017 12/05/2017 Elevated blood pressure 07/04/201711/09 Immunizations Immunization Administration Dates Next Due DTaP, Unspecified 11/30/2006, 4,07/06/2003,05/04/20 03,03/03/2003 HPV Quadrivalent 05/08/2014 Hep A, 2 Dose 05/08/2014 Hep B / HiB 2003,03/03/2003 Hib (PRP-OMP) 05/04/2003 IPV 11/30/2006, 3,05/04/2003,03/03/20 03 MMR 2003 MMRV 11/30/2006 Meningococcal MCV4P (Menactra) 05/08/2014 PEDS-Pneumococcal Conjugate (PCV7) 11/20,07/06/2003,05/04/2003,03/03/20 03 Tdap 05/08/2014 Varicella 2003 flucelvax quad pfs =>4 YRS 07/08/2019,07/22/2018 Family History Medical History Relation Name Comments No Known Problems Father Diabetes Mother Hypertension Mother Thyroid disease Mother Relation Name Status Comments Father Alive Mother Alive Social History Tobacco Use Types Packs/Day Years Used Date Smoking Tobacco: Never Smokeless Tobacco: Never Alcohol Use Standard Drinks/Week Comments No 0 (1 standard drink = 0.6 oz pur e alcohol) PHQ-2 Answer Date Recorded Retired Total Score 1 01/02/2020 Abuse Screen Answer Date Recorded Unsafe at Home or Work/School Not on file Feels Threatened by Someone? Not on file 08/2023 Does Anyone Keep You from Co ntacting Others or Doint Things Outside the Home? Not on file 07/18/2023 Physical Sign of Abuse Present Not on file 1 Housing Stability Answer Date Recorded Current Living Arrangements Not on file 07/08 Potentially Unsafe Housing Conditions Not on jason e 07/18/2023 Family and Community Support Answer Wilian e Recorded Help with Day-to-Day Activities Not on file 07/18/2023 Lonely or Isolated Not on file 07/18/2023 Employment Answer Date Recorded Do you want help finding or keeping work or a rashi b? Not on file 07/18/2023 Disabilities Answer Date Recorded Concentrating, Remembering, or Making Decisions Difficulty Not on file 07/18/2023 Doing Errands Independently Difficulty Not on fi le 07/18/2023 Education Answer Date Recorded Help with school or training? Not on file Preferred Language Not on file 07/18/2023 Comments Unknown Sex and Gender Information Value Date Recorded Sex Assigned at Not on file Legal Sex Female 10:19 AM EDT Gender Identity Not on file Sexual Orientation Not on file Last Filed Vital Signs Vital Sign Reading Time Taken Comments Blood Pressure 140/92 03/01/2021 1:58 PM EDT Pulse 68 03/01/2021 1:58 PM EDT Temperature 37 C (98.6 F) 03/01/2021 1:58 PM EDT Respiratory Rate 18 03/01/2021 1:58 PM EDT Oxygen Saturation 98% 03/11/2018 10:36 AM EDT Inhaled Oxygen Concentration - - Weight 108 kg (237 lb) 03/01/2021 1:58 PM EDT Height 160 cm (5' 3 ) 03/01/2021 1:58 PM EDT Body Mass Index 41.98 03/01/2021 1:58 PM EDT Plan of Treatment Health Maintenance Due Date Last Done Comments Annual Gynecologic Pelvic and Breast Exam 2002 HPV VACCINES (2 - 2-dose series) 11/08/2014 05/08/2014 ANNUAL PHYSICAL 02/07/2017 HEPATITIS C SCREENING 02/07/2017 MENINGOCOCCAL B VACCINE (1 of 2 - Standard) 2018 TDAP/TD VACCINES (2 - Td or Tdap) 05/08/2024 05/08/2014 INFLUENZA VACCINE 05/08/2025 07/08/2019, 07/22/2018 Pneumococcal Vaccine 0-49 Aged Out 2003, 07/06/2003, 05/04/2003, Additional history exists No longer eligible based on patient's age to complete this topic MENINGOCOCCAL VACCINE Aged Out 05/08/2014 No inna sheryl eligible based on patient's age to complete this topic Insurance PASSPORT BY [employer] PASSP[employer] BY [employer] Care Teams Wind Turbine Technician Relationship Specialty Start Date End Date Edilberto Harden MD [address] [place] [address] PCP - General Family Medicine 02/07/17
[2025-10-03 22:13] LABS: Alanine Aminotransferase 22 U/L (12-78); Albumin Level 4.6 g/dl (3.5-5.0); Albumin/Globulin Ratio 1.4 (1.1-1.8); Alkaline Phosphatase 73 U/L (38-126); Anion Gap 12.4 mEq/L (5-15); Aspartate Amino Transferase 25 U/L (14-36); Bilirubin,Total 0.4 mg/dl (0.2-1.3); Blood Urea Nitrogen 15 mg/dl (7-17); Calcium 9.5 mg/dl (8.4-10.2); Carbon Dioxide 26 mmol/L (22.0-30.0); Chloride 103 mmol/L (98-107); Creatinine,Serum 0.90 mg/dl (0.52-1.04); Estimated Glomerular Filt Rate 78 ml/min (>60); GFR (African American) 95 ML/MIN (>60); Globulin 3.2 g/dL (1.3-3.2); Glucose 100 mg/dl (74-100); Lipase 84 U/L (23-300); Magnesium 1.9 mg/dl (1.6-2.3); Potassium 4.4 mmoL/L (3.5-5.1); Sodium 137 mmol/L (136-145); Total Protein,Serum 7.8 g/dl (6.3-8.2)
[2025-10-03 22:27] LABS: Troponin I < 0.01 ng/ml (0.00-0.034)
[2025-10-03 22:28] LABS: Urine Pregnancy, HCG Qual. Negative (Negative)
[2025-10-03] MEDS: FAMOTIDINE 20MG/2ML VIAL 20 MG IV (22:32)
[2025-10-03] MEDS: ONDANSETRON 4MG/2ML VIAL 4 MG IV (22:32)
[2025-10-03] MEDS: KETOROLAC 30MG/ML VIAL 30 MG IV (22:32)
[2025-10-03] MEDS: 0.9 % SODIUM CHLORIDE 1000ML 1,000 ML 999 ML IV (22:33)
[2025-10-03] MEDS: SODIUM CHLORIDE 0.9% 10ML VIAL 8 ML IV (22:33)
[2025-10-03 22:39] LABS: Bilirubin,Urine Negative (Negative); Color,Urine YELLOW (Yellow); Glucose,Urine (UA) Negative (Negative); Ketones,Urine Negative (Negative); Leukocyte Esterase,Urine Negative (Negative); PH,Urine 6.0 (5.0-8.5); Protein,Urine Negative (Negative); Specific Gravity, Urine 1.025 (1.005-1.030); Urobilinogen,Urine 1.0 EU/dl (0.2)
[2025-10-03 22:41] LABS: Bacteria,Urine 1+ /lpf
--- NOTE | 2025-10-03 23:00 | ECG_ITS ---
APPROVED REPORT Exam: Resting ECG HR:66 bpm ECG Measurements Heart Rate 66 AXES CA 165 P 13 QRSd 95 QRS 43 QT 372 T 37 QTc 386 Conclusion SINUS RHYTHM WITH SINUS ARRHYTHMIA NORMAL ECG Electronically signed by : CHICO MA, 10/04/2025 07:12:27
[2025-10-03] MEDS: SODIUM CHLORIDE 0.9% 10ML SYR (RAD ONLY) 10 ML IV (23:07)
[2025-10-03] MEDS: IOPAMIDOL-370 (76%);100ML BOTTLE 75 ML IV (23:07)
[2025-10-03 23:26] LABS: Coronavirus 19, PCR Not Detected (NotDetected); Influenza A, PCR Not Detected (NotDetected); Influenza B, PCR Not Detected (NotDetected)
[2025-10-03 23:46] VITALS: BP 143/78; PULSE 75; RESP 18; TEMP 36.6; O2SAT 95; BMI 36.3
[2025-10-03 23:50] VITALS: BP 143/78; PULSE 74; RESP 18; TEMP 37.2; O2SAT 98
[2025-10-04 00:32] VITALS: BP 136/77; PULSE 72; RESP 16; TEMP 36.8; O2SAT 99
[2025-10-04 01:35] LABS: Hepatitis C Ab Qual. W/ RFX NEGATIVE (Negative)
== END 2025-10-04 00:33 | disposition home or self-care (01) ==
PROVIDERS: Nurse Practitioner; Emergency Provider Student in an Organized Health Care Education/Training Program; PCP Family Medicine
DX: R10.13 Epigastric pain (principal); R11.2 Nausea with vomiting, unspecified
CPT/HCPCS: 71045; 74177; 80053; 81001; 81025; 83690; 83735; 84484; 85025; 86803; 87389; 87636; 93005; 96361; 96374; 96375; 99285; J1308; J1885; J2405; J7030; Q9967